=== PATIENT | male | born 1965 | race Caucasian/White ===

== ENCOUNTER 2019-02-15 07:13 | Day surgery (SDC) | payer OTHER ==
[~2019-02-15] VITALS: Ht 167.6 cm; Wt 89.4 kg
[~2019-02-15 07:13] MED LIST: ASPI-1 PO; CIAL10TA PO; TADA5TAB PO
[2019-02-15] MEDS ORDERED: NS 1,000 ML IV ONE (07:45)
[2019-02-15] MEDS ORDERED: PROPOFOL 200 MG/20 ML VIAL As Ordered ONE ×2 (07:59→08:16)
--- NOTE | 2019-02-15 08:18 | ROOR ---
Patient Name: Miguel A Sanders Procedure Date: 02/15/2019 7:57 AM Date of : 1965 Age: 53 Room: [facility] Gender: Male Note Status: Finalized Procedure: Colonoscopy Indications: High risk colon cancer surveillance: Personal history of colon cancer Providers: Marcus JACOBO MD Referring MD: Kristopher Espino DO Requesting Provider: Medicines: Monitored Anesthesia Care Complications: No immediate complications. Procedure: Pre-Anesthesia Assessment: - The heart rate, respiratory rate, oxygen saturations, blood pressure, adequacy of pulmonary ventilation, and response to care were monitored throughout the procedure. The Colonoscope was introduced through the anus and advanced to the cecum, identified by appendiceal orifice and ileocecal valve. The colonoscopy was performed without difficulty. The patient tolerated the procedure well. The quality of the bowel preparation was adequate. Findings: The perianal and digital rectal examinations were normal. There was evidence of a prior end-to-end colo-colonic anastomosis in the sigmoid colon. This was patent and was characterized by healthy appearing mucosa. Small Internal Hemorrhoids. The exam was otherwise without abnormality on direct and retroflexion views. Impression: - Patent end-to-end colo-colonic anastomosis in sigmoid colon, characterized by healthy appearing mucosa. - Small Internal Hemorrhoids. - The examination was otherwise normal on direct and retroflexion views. - No specimens collected. Recommendation: - Repeat colonoscopy in 5 years for surveillance. Marcus Jacobo MD Marcus JACOBO MD 02/15/2019 8:18:05 AM Electronically signed by Marcus JACOBO MD Number of Addenda: 0 Note Initiated On: 02/15/2019 7:57 AM Estimated Blood Loss: Estimated blood loss: none.
[2019-02-15 08:35] VITALS: BP 125/84
== END 2019-02-15 08:41 | disposition home or self-care (01) ==
LOC: M OPP 07:13
PROVIDERS: ATTEND Internal Medicine Gastroenterology
DX: Z98.0 Intestinal bypass and anastomosis status (principal); Z85.038 Personal history of other malignant neoplasm of large intestine; Z08 Encounter for follow-up examination after completed treatment for malignant neoplasm; Z79.82 Long term (current) use of aspirin; Z79.899 Other long term (current) drug therapy

== ENCOUNTER 2022-11-22 09:28 | Day surgery (SDC) | payer OTHER ==
[~2022-11-22] VITALS: Ht 165.1 cm; Wt 92.8 kg
[~2022-11-22 09:28] MED LIST changes: +ELIQ2.5T PO; +ELIQ5TAB PO; +LISI10TA22 PO; +NS 1,000 ML IV ONE
[2022-11-22] MEDS ORDERED: propofoL 200 MG/20 ML VIAL As Ordered ONE (10:39)
[2022-11-22] MEDS ORDERED: fentaNYL 100 MCG/2 ML INJECTION As Ordered ONE (10:59)
[2022-11-22 12:00] VITALS: BP 132/74; TEMP 96.8; O2SAT 94
== END 2022-11-22 12:00 | disposition home or self-care (01) ==
LOC: M OPP 09:28
PROVIDERS: ATTEND Internal Medicine Gastroenterology
DX: Z12.11 Encounter for screening for malignant neoplasm of colon (principal); Z85.038 Personal history of other malignant neoplasm of large intestine; K64.8 Other hemorrhoids; K62.89 Other specified diseases of anus and rectum; Z98.0 Intestinal bypass and anastomosis status; K44.9 Diaphragmatic hernia without obstruction or gangrene; K22.89 Other specified disease of esophagus; K29.70 Gastritis, unspecified, without bleeding; Z79.01 Long term (current) use of anticoagulants; Z79.1 Long term (current) use of non-steroidal anti-inflammatories (NSAID); Z79.899 Other long term (current) drug therapy
CPT/HCPCS: 43239; 45378; 88305; J3010